=== PATIENT | female | born 1975 | race Caucasian/White ===

== ENCOUNTER 2016-12-06 20:25 | Emergency (ER) | payer SELFPAY ==
[2016-12-06 21:42] LABS: AMPHETAMINE QUAL UR NONE DETECTED (NEG <=1000)
[2016-12-06 22:01] LABS: BASOPHIL % 0.5 % (0-2); PLATELET COUNT 214 x10^3mcL (130-400)
[2016-12-06 22:05] LABS: RED CELL DISTRIBUTION WIDTH 18.9 % (11.5-14.5)
[2016-12-06 22:18] LABS: ALKALINE PHOSPHATASE 108 U/L (46-116); ALT/SGPT 15 U/L (14-59); AST/SGOT 13 U/L (15-37); BILIRUBIN TOTAL 0.2 mg/dL (0.20-1.00); CALCIUM 8.6 mg/dL (8.5-10.1); CARBON DIOXIDE 23.3 mmol/L (21-32); CREATININE SERUM 0.6 mg/dL (0.6-1.0); GFR1 > 60 mL/min; GLUCOSE SERUM 155 mg/dL (74-106); TOTAL PROTEIN, SERUM 7.3 g/dL (6.4-8.2)
[2016-12-06 22:19] LABS: ALBUMIN 3.2 g/dL (3.4-5.0)
[2016-12-06 22:27] LABS: CHLORIDE SERUM 106 mmol/L (98-107); POTASSIUM SERUM 3.1 mmol/L (3.5-5.1); SODIUM SERUM 143 mmol/L (136-145)
[2016-12-07 01:34] VITALS: BP 113/77
== END 2016-12-07 01:36 | disposition home or self-care (01) ==
LOC: ED 20:25
PROVIDERS: Emergency Medicine
DX: F10.129 Alcohol abuse with intoxication, unspecified (principal)
CPT/HCPCS: 80307; G0480; J3486; J7030